=== PATIENT | female | born 1950 | race Caucasian/White ===

== ENCOUNTER 2024-02-20 10:08 | Day surgery (SDC) | payer MEDICARE, OTHER ==
[2024-02-20] MEDS: Polymyxin B/Trimethoprim 10 ML Bottle EYELF SCH (10:26)
[2024-02-20] MEDS: Brimonidine 0.2% Ophth Soln 5 ML Bottle EYELF SCH (10:32)
[2024-02-20] MEDS: Phenylephrine 2.5% Ophth Soln 2 ML Bot EYELF SCH (10:36)
[2024-02-20] MEDS: Tropicamide 1% Ophth Soln 3 ML Bottle EYELF SCH (10:41)
[2024-02-20] MEDS: Tetracaine HCl/PF 0.5% 4 ML Bottle EYEBOTH SCH (11:33)
[2024-02-20] MEDS: Lidocaine 1% PF 2 ML SDV INJECT SCH (12:08)
[2024-02-20] MEDS: Pilocarpine 4% Ophth Soln 15 ML Bot EYELF SCH (12:22)
[2024-02-20] MEDS: Cefuroxime 10 MG/ML SYRINGE EYELF SCH (12:22)
== END 2024-02-20 12:36 | disposition home or self-care (01) ==
LOC: JD.SDS 10:08
PROVIDERS: ATTEND Ophthalmology
DX: H25.813 Combined forms of age-related cataract, bilateral (principal); H43.393 Other vitreous opacities, bilateral; H16.103 Unspecified superficial keratitis, bilateral; H16.223 Keratoconjunctivitis sicca, not specified as Sjogren's, bilateral; H21.81 Floppy iris syndrome; I10 Essential (primary) hypertension; Z79.899 Other long term (current) drug therapy
CPT/HCPCS: 66984; A9270; J0697; J3490

== ENCOUNTER 2024-03-26 10:40 | Day surgery (SDC) | payer MEDICARE, OTHER ==
[~2024-03-26 10:40] MED LIST: Cefuroxime 10 MG/ML SYRINGE EYERT SCH; Lidocaine 1% PF 2 ML SDV INJECT SCH; Pilocarpine 4% Ophth Soln 15 ML Bot EYERT SCH
[2024-03-26] MEDS: Polymyxin B/Trimethoprim 10 ML Bottle EYERT SCH (11:23)
[2024-03-26] MEDS: Brimonidine 0.2% Ophth Soln 5 ML Bottle EYERT SCH (11:28)
[2024-03-26] MEDS: Phenylephrine 2.5% Ophth Soln 2 ML Bot EYERT SCH (11:32)
[2024-03-26] MEDS: Tropicamide 1% Ophth Soln 3 ML Bottle EYERT SCH (11:37)
[2024-03-26] MEDS: Tetracaine HCl/PF 0.5% 4 ML Bottle EYEBOTH SCH (12:42)
== END 2024-03-26 13:22 | disposition home or self-care (01) ==
LOC: JD.SDS 10:40
PROVIDERS: ATTEND Ophthalmology
DX: H25.811 Combined forms of age-related cataract, right eye (principal); H21.81 Floppy iris syndrome; I10 Essential (primary) hypertension
CPT/HCPCS: A9270-GY; J3490